=== PATIENT | female | born 1950 | race Caucasian/White ===

== ENCOUNTER 2020-01-25 13:08 | Outpatient (REF) | payer MEDICARE, MEDICAID, SELFPAY ==
[2020-01-25 14:28] LABS: MANUAL DIFF FLAG NO
[2020-01-25 14:35] LABS: Basophils Absolute Auto 0.1 X10*3/uL (0.0-0.2); Basophils Percent Auto 0.9 % (0-2); Eosinophils Absolute Auto 0.4 X10*3/uL (0.0-0.4); Eosinophils Percent Auto 6.1 % (0-4); Hematocrit 42.2 % (37-47); Hemoglobin 13.3 g/dl (12.0-16.0); Imm Gran Abs Auto 0.02 X10*3/uL (0.00-0.03); Imm Gran Pct Auto 0.3 % (0.0-0.4); Lymphocytes Absolute Auto 1.8 X10*3/uL (1.2-4.9); Lymphocytes Percent Auto 28.1 % (20-40); Mean Corpuscular HGB Conc 31.5 g/dl (31.0-35.0); Mean Corpuscular Hemoglobin 27.7 pg (27.0-33.0); Mean Corpuscular Volume 87.9 fL (80-98); Mean Platelet Volume 12.4 fL (9.4-12.3); Monocytes Absolute Auto 0.6 X10*3/uL (0.1-1.2); Monocytes Percent Auto 8.8 % (2-11); Neutrophils Absolute Auto 3.6 X10*3/uL (2.0-8.3); Neutrophils Percent Auto 55.8 % (45-73); Platelet Count 170 X10*3/uL (160-400); Red Cell Distribution Width 14.2 % (11.0-16.0); White Blood Count 6.5 X10*3/uL (4.8-10.8)
[2020-01-25 14:57] LABS: Iron 80 mcg/dL (30-160); Percent Iron Saturation 22 % (15-50); Total Iron Binding Capacity 371 mcg/dL (228-428); Unsaturated Iron Binding 291 ug/dL
[2020-01-25 15:19] LABS: Ferritin 43 ng/mL (10-250); Vitamin D 25-OH Total 47.2 ng/mL (>30)
[2020-01-28 00:26] LABS: Zinc 82 mcg/dL (60-130)
== END 2020-01-25 13:09 | disposition home or self-care (01) ==
LOC: HO.LAB 13:08
PROVIDERS: PCP Family Medicine; Visit Provider Physician Assistant Medical
DX: L65.0 Telogen effluvium (principal); L64.8 Other androgenic alopecia; L82.1 Other seborrheic keratosis
CPT/HCPCS: 36415; 82306; 82728; 83540; 84630; 85025

== ENCOUNTER 2020-07-18 11:00 | Outpatient (REF) | payer MEDICARE, MEDICAID, SELFPAY ==
[2020-07-18 12:10] LABS: Basophils Absolute Auto 0.1 X10*3/uL (0.0-0.2); Basophils Percent Auto 1.3 % (0-2); Eosinophils Absolute Auto 0.5 X10*3/uL (0.0-0.4); Eosinophils Percent Auto 8.5 % (0-4); Hematocrit 41.9 % (37-47); Hemoglobin 13.2 g/dl (12.0-16.0); Imm Gran Abs Auto 0.03 X10*3/uL (0.00-0.03); Imm Gran Pct Auto 0.5 % (0.0-0.4); Lymphocytes Absolute Auto 1.4 X10*3/uL (1.2-4.9); MANUAL DIFF FLAG NO; Mean Corpuscular HGB Conc 31.5 g/dl (31.0-35.0); Mean Corpuscular Hemoglobin 27.8 pg (27.0-33.0); Mean Corpuscular Volume 88.2 fL (80-98); Monocytes Absolute Auto 0.6 X10*3/uL (0.1-1.2); Monocytes Percent Auto 9.4 % (2-11); Neutrophils Absolute Auto 3.5 X10*3/uL (2.0-8.3); Neutrophils Percent Auto 57.3 % (45-73); Platelet Count 156 X10*3/uL (160-400); Red Blood Count 4.75 X10*6/uL (4.20-5.50); Red Cell Distribution Width 14.5 % (11.0-16.0); White Blood Count 6.1 X10*3/uL (4.8-10.8)
[2020-07-18 12:23] LABS: Estimated Average Glucose 151 mg/dL; Hemoglobin A1c % 6.9 %
[2020-07-18 12:55] LABS: Creatinine Urine 152.51 mg/dL; Microalbum/Creatinine Ratio Ur 26.2 ug/mg cr
[2020-07-18 13:13] LABS: Alanine Aminotransferase 37 U/L (0-31); Albumin Level 4.4 g/dL (3.5-5.0); Alkaline Phosphatase 50 U/L (39-117); Anion Gap 15 (12-20); Aspartate Amino Transferase 32 U/L (5-31); Bilirubin Direct 0.3 mg/dL (0.0-0.5); Bilirubin Total 0.9 mg/dL (0.0-1.0); Blood Urea Nitrogen 15 mg/dL (9-16); Calcium 9.7 mg/dL (8.4-10.2); Carbon Dioxide 28 mmol/L (22-29); Chloride 103 mmol/L (96-108); Cholesterol 149 mg/dL; Estimated Glomerular Filt Rate > 60; Glucose Random 176 mg/dL (60-115); HDL Cholesterol 49 mg/dL; LDL Cholesterol Calculated 66 mg/dl; Potassium 4.1 mmol/L (3.3-5.1); Sodium 142 mmol/L (135-145); Total Protein 7.3 g/dL (6.5-8.0); Triglycerides 171 mg/dL
[2020-07-18 13:34] LABS: Ferritin 71 ng/mL (10-250)
[2020-07-18 13:35] LABS: Vitamin D 25-OH Total 36.9 ng/mL (>30)
== END 2020-07-18 11:01 | disposition home or self-care (01) ==
LOC: HO.LAB 11:00
PROVIDERS: Absent Provider Internal Medicine; PCP Internal Medicine; Visit Provider Dermatology
DX: L64.8 Other androgenic alopecia (principal); L65.0 Telogen effluvium
CPT/HCPCS: 36415; 80048; 80061; 80076; 82043; 82306; 82728; 83036; 85025

== ENCOUNTER → 2020-08-16 13:19 | Outpatient (BNVA) | payer MEDICARE, MEDICAID, SELFPAY | PROVIDERS: PCP Internal Medicine; Referring Provider Internal Medicine; Visit Provider Internal Medicine Cardiovascular Disease | DX: I25.10 Atherosclerotic heart disease of native coronary artery without angina pectoris (principal); R00.2 Palpitations | CPT/HCPCS: 93005; 99212 ==

== ENCOUNTER → 2020-08-26 10:06 | Outpatient (REF) | payer MEDICARE, MEDICAID, SELFPAY ==
--- NOTE | 2020-08-26 15:20 | ECG_ITS ---
Hook-up date: 2020-08-26 10:35:00 Duration: 47:59:00 Test Indications: palpitations Medications: [id number] QRS complexes 45 Ventricular ectopics which represent <1 % of total QRS comp. 48 Supraventricular ectopics which represent <1 % of total QRS comp. * Paced QRS complexs which represent % of total QRS comp. VENTRICULAR ECTOPY 36 Isolated 0 Bigeminal Cycles 1 Couplets 1 Runs 7 Beats in Runs 7 Beats LONGEST at 79 BPM at 20:43:15 2020-08-26 7 Beats FASTEST at 79 BPM at 20:43:15 2020-08-26 SUPRAVENTRICULAR ECTOPY 9 Isolated 0 Couplets 7 Runs 39 Beats in Runs 13 Beats LONGEST at 100 BPM at 02:14:40 2020-08-27 4 Beats FASTEST at 119 BPM at 14:50:40 2020-08-26 HEART RATES 50 MIN at 05:11:59 2020-08-27 64 AVG 82 MAX at 15:55:45 2020-08-26 LONGEST RR 1.2080 secs at 05:11:59 2020-08-27 S-T LEVELS Channel 1 - 128 mm at 10:35:00 2020-08-26 - 128 mm at 10:35:00 2020-08-26 Channel 2 - 128 mm at 10:35:00 2020-08-26 - 128 mm at 10:35:00 2020-08-26 Channel 3 - 128 mm at 02:95:41 -- - 128 mm at 02:95:41 Basic rhythm Normal sinus rhythm Frequent Sinus bradycardia , 33% of time HR < 60 bpm No long pause or profound bradycardia One 7 beat run of AIVR at 79 bpm Rare ectopics Patient did not report any symptoms in the diary Referred By: Michael Hazel Overread By: MICHAEL HAZEL MD
== END ==
LOC: HO.CARD 10:06
PROVIDERS: PCP Internal Medicine; Referring Provider Internal Medicine; Visit Provider Internal Medicine Cardiovascular Disease
DX: R00.2 Palpitations (principal)
CPT/HCPCS: 93226

== ENCOUNTER → 2020-10-13 10:04 | Outpatient (REF) | payer MEDICARE, MEDICAID, SELFPAY ==
--- NOTE | 2020-10-13 10:07 | CA_ITS ---
Transthoracic Echocardiogram Patient (Last, First, Middle): Shahida Maya, Gender: Female Date of : 1950 Age: 70 Procedure Date: 10/13/2020 Procedure Type: Transthoracic Echocardiogram Location: OP Height: 165.1 cm Weight: 69.85 kg BSA: 1.77 m2 Heart Rate: bpm BP: 140 / 60 mmHg Computer Technology Instructor: WEI Referring MD: Michael Hazel MD Supervisor Instant Potato Processing: Michael Hazel MD Symptoms: R00.2 - Palpitations Study Quality: Good ECG Rhythm: Sinus Conclusions: - 1. Normal LV systolic function with grade 1 diastolic dysfunction 2. Normal cardiac valvular Doppler is 3. Normal RV systolic pressure 4. No pericardial effusion Findings Left Ventricle Normal left ventricular size, thickness, and systolic function. The visually estimated ejection fraction is between 65-70%. Spectral Doppler is indicative of an impaired relaxation filling pattern. E/E prime ratio is <8, consistent with normal filling pressures. Evidence suggests grade I (mild) diastolic dysfunction. Right Ventricle Normal right ventricular cavity size and systolic function. Atria The left atrium is normal in size. There is no evidence of interatrial shunt. The right atrium is normal in size. Aortic Valve Normal aortic valve structure and function. There is no aortic valve stenosis. There is no aortic valve regurgitation. Mitral Valve Normal mitral valve structure and function. There is trace mitral valve regurgitation. There is no mitral valve stenosis. Pulmonic Valve The pulmonic valve is likely normal. There is trace pulmonic valve regurgitation. Tricuspid Valve There is no evidence of pulmonary hypertension. Great Vessels All visible segments of the aorta are normal in size. The pulmonary artery was not well visualized. Venous The inferior vena cava is normal in size and collapses greater than 50% with inspiration. Pericardium/Pleural There is no evidence of pericardial effusion. Prior Study Comparison No significant change compared to prior study dated: 11/20/2017. Measurements 2D Linear Measurements IVSd: 1.15 0.6-0.9/0.6-1.0 cm LVIDd: 3.69 3.9-5.3/4.2-5.9 cm LVIDd Index: 2.08 2.4-3.2/2.2-3.1 cm/m2 LVIDs: 2.06 2.0-3.6 cm LVPWd: 1.05 0.7-1.1 cm Ao Root: 2.70 2.1-3.5 cm LA Diam: 4.00 2.7-3.8/3.0-4.0 cm LAIDs Index: 2.26 1.5-2.3 cm/m2 LV Mass: 160.26 67-162/88-224 g LV Mass Index: 90.54 43-95/49-115 g/m2 LVOT Diam: 2.00 3.0+(-)1.3 cm 2D Systolic Function EF 4C: 67.40 >55% EF 2C: 65.80 >55% EF BiP: 68.30 >55% Mitral Valve MV Pk E: 0.64 MV PK A: 0.61 MV Decel Time: 146.00 E/A: 1.10 E'Lateral: 11.10 E'Medial: 5.87 E/E' Med: 11.00 E/E' Lat: 5.80 PHT: 43.00 MVA PHT: 5.12 Decel [place]: 4.41 Aortic Valve AoV Pk Mal[place]: 1.40 AoV Pk Grad: 8.00 LVOT LVOT Pk Malick: 1.33 LVOT Mn Malick: 0.86 LVOT VTI: 0.33 LVOT Pk Grad: 7.00 LVOT Mn Grad: 3.00 LVOT Diam: 2.00 LVOT Area: 3.14 Diastolic Function MV Pk E: 0.64 MV Pk A: 0.61 E/A: 1.10 E'Medial: 5.87 E/E' Med: 11.00 E' Laterial: 11.10 E/E' Lat: 5.80 Right Ventricle TAPSE (mm): 1.91 Tricuspid Valve TR Pk Malick: 2.47 TR Pk Grad: 24.00 RA Press: 3.00 RVSP: 27.00 Great Vessels Aorta Ao Root-2D: 2.70 2.0-3.7 cm Ao Asc: 3.00 2.1-3.4 cm Updated in Other Vendor System with Status of Final Michael Hazel MD electronically signed on 10/14/2020 2:58:12 PM with status of Final
== END ==
LOC: HO.CARD 10:04
PROVIDERS: Visit Provider Internal Medicine Cardiovascular Disease
DX: R00.2 Palpitations (principal)
CPT/HCPCS: 93306

== ENCOUNTER → 2020-10-17 09:58 | Outpatient (BNVA) | payer MEDICARE, MEDICAID, SELFPAY | PROVIDERS: PCP Internal Medicine; Referring Provider Internal Medicine; Visit Provider Internal Medicine Cardiovascular Disease | DX: R00.2 Palpitations (principal); Z79.899 Other long term (current) drug therapy | CPT/HCPCS: 99212 ==

== ENCOUNTER 2020-12-15 13:20 | Outpatient (REF) | payer MEDICARE, MEDICAID, SELFPAY ==
--- NOTE | ~2020-12-15 | MM_ITS ---
EXAMINATION: MM SCREENING DIGITAL BREAST TOMOSYNTHESIS, BILATERAL CLINICAL INFORMATION: Screening. Asymptomatic. The lifetime risk of breast cancer based on the Tyrer-Cuzick Model is 4%. COMPARISON: Mammography: 07/01/2018 and studies dating back to 07/07/2013 TECHNIQUE: Digital breast tomosynthesis is performed in both the craniocaudal and mediolateral oblique views along with computer-aided detection (CAD). Synthesized 2D images are generated from the tomosynthesis. Left breast exaggerated craniocaudal view performed. FINDINGS: The breasts are heterogeneously dense, which may obscure small masses (ACR BI-RADS breast composition Category c). There is stable appearance of the right breast. About the deep upper outer aspect of the left breast there is development of some curvilinear calcifications which may be vascular in nature. Spot magnification views are recommended for further evaluation. MM/MM tomosynthesis screening BI IMPRESSION: New curvilinear calcifications about the upper outer aspect of the left breast for which spot magnification views are recommended in craniocaudal and 90 degrees mediolateral views. ASSESSMENT: BI-RADS 0: Incomplete - Need Additional Imaging Evaluation RECOMMENDATION: 1. Additional views of the left breast. 2. Targeted ultrasound if warranted after review of the additional views. 3. Radiology department staff will contact the patient for additional imaging. This patient's information was entered into a reminder system with a target due date for their next mammogram.
== END 2020-12-15 13:21 | disposition home or self-care (01) ==
LOC: HO.MAMMO 13:20
PROVIDERS: Visit Provider Internal Medicine
DX: Z12.31 Encounter for screening mammogram for malignant neoplasm of breast (principal)
CPT/HCPCS: 77063; 77067

== ENCOUNTER 2020-12-21 14:36 | Outpatient (REF) | payer MEDICARE, MEDICAID, SELFPAY ==
--- NOTE | ~2020-12-21 | MM_ITS ---
EXAMINATION: MM DIAGNOSTIC DIGITAL MAMMOGRAPHY, LEFT CLINICAL INFORMATION: Recall from screening for new curvilinear calcifications posterior upper outer left breast, possibly vascular. COMPARISON: Mammography: 12/15/2020, 07/01/2018, 06/14/2017 TECHNIQUE: Digital mammography is performed in the following views: Magnification CC, magnification ML FINDINGS: The breasts are heterogeneously dense, which may obscure small masses (ACR BI-RADS breast composition Category c). Breast tissue composition borders on average fibroglandular. The new curvilinear calcifications noted on recent screening mammography are vascular in etiology with typical uniform tram-track pattern. There are other scattered fine round calcifications throughout the upper outer left breast similar to prior exams. No interval pleomorphic types. Results are discussed with the patient at time of visit using an director of parks and recreation. MM/MM added views LT IMPRESSION: Additional views confirm no benign vascular calcifications posterior upper outer left breast. ASSESSMENT: BI-RADS 2: Benign RECOMMENDATION: Routine annual mammography screening. This patient's information was entered into a reminder system with a target due date for their next mammogram.
== END 2020-12-21 14:37 | disposition home or self-care (01) ==
LOC: HO.MAMMO 14:36
PROVIDERS: Visit Provider Internal Medicine
DX: R92.1 Mammographic calcification found on diagnostic imaging of breast (principal)
CPT/HCPCS: 77065

== ENCOUNTER → 2020-12-26 10:18 | Outpatient (BNVA) | payer MEDICARE, MEDICAID, SELFPAY | PROVIDERS: PCP Internal Medicine; Visit Provider Internal Medicine Gastroenterology | DX: K75.81 Nonalcoholic steatohepatitis (NASH) (principal) | CPT/HCPCS: 99212 ==

== ENCOUNTER 2021-02-22 09:36 | Outpatient (REF) | payer MEDICARE, MEDICAID, SELFPAY ==
--- NOTE | ~2021-02-22 | US_ITS ---
EXAMINATION: US ABDOMEN LIMITED CLINICAL INFORMATION: Nonalcoholic steatohepatitis. COMPARISON: Ultrasound abdomen complete 12/09/2019 and 09/03/2018. KUB 11/17/2014 and 11/07/2014. CT abdomen and pelvis 11/05/2014. TECHNIQUE: Real-time imaging of the right upper quadrant abdominal viscera. FINDINGS: PANCREAS: Normal. LIVER: Liver echotexture is increased. The liver is normal in size. The liver contour is normal. No focal hepatic lesion. There is no intrahepatic biliary duct dilatation seen. GALLBLADDER: Normal. The gallbladder is physiologically distended without evidence of stones, sludge, polyps, wall thickening or pericholecystic fluid. COMMON BILE DUCT: Normal in caliber measuring 0.3 cm in diameter. RIGHT KIDNEY: There are 2 cysts measuring 2.9 x 1.9 x 2.6 cm and 1 cm in the midpole. No hydronephrosis or renal calculi. The kidney measures 12.7 cm in maximum dimension. FREE FLUID: None. US/US abdomen limited IMPRESSION: Echogenic liver probably representing fatty infiltration. Right renal cysts.
== END 2021-02-22 09:37 | disposition home or self-care (01) ==
LOC: HO.US 09:36
PROVIDERS: PCP Internal Medicine; Visit Provider Internal Medicine Gastroenterology
DX: K75.81 Nonalcoholic steatohepatitis (NASH) (principal)
CPT/HCPCS: 76705

== ENCOUNTER 2021-04-04 09:12 | Outpatient (REF) | payer MEDICARE, MEDICAID, SELFPAY ==
[2021-04-04 10:07] LABS: Estimated Average Glucose 157 mg/dL; Hemoglobin A1c % 7.1 %
[2021-04-04 10:20] LABS: Anion Gap 14 (12-20); Blood Urea Nitrogen 18 mg/dL (9-16); Carbon Dioxide 30 mmol/L (22-29); Chloride 103 mmol/L (96-108); Estimated Glomerular Filt Rate > 60; Glucose Random 136 mg/dL (60-115); Potassium 3.7 mmol/L (3.3-5.1); Sodium 143 mmol/L (135-145)
== END 2021-04-04 09:13 | disposition home or self-care (01) ==
LOC: HO.LAB 09:12
PROVIDERS: PCP Internal Medicine; Visit Provider Internal Medicine
DX: Z00.00 Encounter for general adult medical examination without abnormal findings (principal)
CPT/HCPCS: 36415; 80048; 83036

== ENCOUNTER 2021-07-06 10:01 | Outpatient (REF) | payer MEDICARE, MEDICAID, SELFPAY ==
[2021-07-06 11:06] LABS: MANUAL DIFF FLAG NO
[2021-07-06 11:31] LABS: Prothrombin Time 11.9 SEC (9.9-13.0)
[2021-07-06 11:33] LABS: Basophils Absolute Auto 0.1 X10*3/uL (0.0-0.2); Basophils Percent Auto 1.1 % (0-2); Eosinophils Absolute Auto 0.4 X10*3/uL (0.0-0.4); Eosinophils Percent Auto 6.7 % (0-4); Hematocrit 41.8 % (37.0-47.0); Hemoglobin 13.2 g/dl (12.0-16.0); Imm Gran Abs Auto 0.01 X10*3/uL (0.00-0.03); Imm Gran Pct Auto 0.2 % (0.0-0.4); Lymphocytes Percent Auto 19.4 % (20-40); Mean Corpuscular HGB Conc 31.6 g/dl (31.0-35.0); Mean Corpuscular Hemoglobin 26.9 pg (27.0-33.0); Mean Corpuscular Volume 85.3 fL (80.0-98.0); Mean Platelet Volume 11.6 fL (9.4-12.3); Monocytes Absolute Auto 0.5 X10*3/uL (0.1-1.2); Monocytes Percent Auto 8.9 % (2-11); Neutrophils Absolute Auto 3.4 x10*3/uL (2.0-8.3); Neutrophils Percent Auto 63.7 % (45-73); Platelet Count 166 X10*3/uL (160-400); Red Cell Distribution Width 14.2 % (11.0-16.0); White Blood Count 5.3 X10*3/uL (4.8-10.8)
[2021-07-06 11:51] LABS: Alanine Aminotransferase 30 U/L (0-31); Albumin Level 4.2 g/dL (3.5-5.0); Alkaline Phosphatase 54 U/L (39-117); Anion Gap 15 (12-20); Aspartate Amino Transferase 27 U/L (5-31); Bilirubin Total 0.8 mg/dL (0.0-1.0); Blood Urea Nitrogen 15 mg/dL (9-16); Calcium 9.5 mg/dL (8.4-10.2); Carbon Dioxide 30 mmol/L (22-29); Chloride 99 mmol/L (96-108); Estimated Glomerular Filt Rate > 60; Glucose Random 250 mg/dL (60-115); Potassium 3.6 mmol/L (3.3-5.1); Sodium 140 mmol/L (135-145); Total Protein 7.4 g/dL (6.5-8.0)
[2021-07-06 12:11] LABS: Ferritin 55 ng/mL (10-250); TSH reflex Free T4 1.36 uIU/mL (0.32-4.0); Vitamin D 25-OH Total 47.4 ng/mL (>30)
[2021-07-06 12:22] LABS: Folate > 20.0 ng/mL (> or = 4.0); Vitamin B12 451 pg/mL (200-900)
== END 2021-07-06 10:02 | disposition home or self-care (01) ==
LOC: HO.LAB 10:01
PROVIDERS: Absent Provider Physician Assistant Medical; PCP Internal Medicine; Referring Provider Internal Medicine; Visit Provider Internal Medicine Gastroenterology
DX: L65.0 Telogen effluvium (principal); L64.8 Other androgenic alopecia; K75.81 Nonalcoholic steatohepatitis (NASH); E73.9 Lactose intolerance, unspecified
CPT/HCPCS: 36415; 80053; 82306; 82607; 82728; 82746; 84443; 85025; 85610; 99212

== ENCOUNTER → 2021-10-16 10:25 | Outpatient (BNVA) | payer MEDICARE, MEDICAID, SELFPAY | PROVIDERS: PCP Internal Medicine; Referring Provider Internal Medicine; Visit Provider Internal Medicine Cardiovascular Disease | DX: I47.1 Supraventricular tachycardia (principal); I25.10 Atherosclerotic heart disease of native coronary artery without angina pectoris | CPT/HCPCS: 93005; 99212 ==

== ENCOUNTER → 2021-10-24 11:09 | Outpatient (REF) | payer MEDICARE, MEDICAID, SELFPAY ==
--- NOTE | 2021-10-24 11:18 | HM_ITS ---
* Total monitoring time 2 days and 23 hours. * Underlying rhythm is sinus. Average rate 61/Min. Range 49 to 89/Min. * No atrial fibrillation or flutter or AV blocks or pauses. * Rare supraventricular ectopy with minimal burden. * Rare ventricular ectopy with minimal burden. One run of 3 beats, but this could also be supraventricular. * No patient events. MTDD
== END ==
LOC: HO.CARD 11:09
PROVIDERS: PCP Internal Medicine; Visit Provider Internal Medicine Cardiovascular Disease
DX: I47.1 Supraventricular tachycardia (principal)
CPT/HCPCS: 93242

== ENCOUNTER 2021-12-18 09:53 | Outpatient (REF) | payer MEDICARE, MEDICAID, SELFPAY ==
--- NOTE | ~2021-12-18 | MM_ITS ---
EXAMINATION: MM SCREENING DIGITAL BREAST TOMOSYNTHESIS, BILATERAL CLINICAL INFORMATION: Screening. Asymptomatic. The lifetime risk of breast cancer based on the Tyrer-Cuzick Model is 5%. COMPARISON: Mammography: 12/21/2020, 12/15/2020, 07/01/2018, 06/14/2017 TECHNIQUE: Digital breast tomosynthesis is performed in both the craniocaudal and mediolateral oblique views along with computer-aided detection (CAD). Synthesized 2D images are generated from the tomosynthesis. FINDINGS: The breasts are heterogeneously dense, which may obscure small masses (ACR BI-RADS breast composition Category c). Parenchymal pattern is similar to prior studies. No developing density or interval mass or architectural abnormality. There is a dermal lesion overlying the posterior medial left breast. Again, scattered bilateral punctate and coarse round and vascular calcifications are again noted. The axilla are unremarkable. No significant changes. MM/MM tomosynthesis screening BI IMPRESSION: No mammographic evidence of malignancy. ASSESSMENT: BI-RADS 2: Benign RECOMMENDATION: Routine annual mammography screening. This patient's information was entered into a reminder system with a target due date for their next mammogram.
== END 2021-12-18 09:54 | disposition home or self-care (01) ==
LOC: HO.MAMMO 09:53
PROVIDERS: PCP Internal Medicine; Visit Provider Internal Medicine
DX: Z12.31 Encounter for screening mammogram for malignant neoplasm of breast (principal)
CPT/HCPCS: 77063; 77067

== ENCOUNTER → 2022-01-04 09:34 | Outpatient (BNVA) | payer MEDICARE, MEDICAID, SELFPAY | PROVIDERS: PCP Internal Medicine; Visit Provider Internal Medicine Gastroenterology | DX: Z23 Encounter for immunization (principal); K75.81 Nonalcoholic steatohepatitis (NASH) | CPT/HCPCS: 90471; 90746; 99212 ==

== ENCOUNTER 2022-01-23 09:37 | Outpatient (REF) | payer MEDICARE, MEDICAID, SELFPAY ==
[2022-01-23 10:46] LABS: Estimated Average Glucose 166 mg/dL; Hemoglobin A1c % 7.4 %
[2022-01-23 10:49] LABS: Alanine Aminotransferase 44 U/L (0-31); Albumin Level 4.3 g/dL (3.5-5.0); Alkaline Phosphatase 48 U/L (39-117); Anion Gap 21 (12-20); Aspartate Amino Transferase 52 U/L (5-31); Bilirubin Direct 0.4 mg/dL (0.0-0.5); Bilirubin Total 0.6 mg/dL (0.0-1.0); Blood Urea Nitrogen 14 mg/dL (9-16); Calcium 9.6 mg/dL (8.4-10.2); Carbon Dioxide 26 mmol/L (22-29); Chloride 101 mmol/L (96-108); Cholesterol 118 mg/dL; Estimated Glomerular Filt Rate > 60; Glucose Random 174 mg/dL (60-115); HDL Cholesterol 49 mg/dL; LDL Cholesterol Calculated 38 mg/dl; Potassium 3.6 mmol/L (3.3-5.1); Sodium 144 mmol/L (135-145); Total Protein 7.2 g/dL (6.5-8.0); Triglycerides 157 mg/dL
[2022-01-23 11:06] LABS: Creatinine Urine 136.86 mg/dL; Microalbum/Creatinine Ratio Ur 28.4 ug/mg cr
== END 2022-01-23 09:38 | disposition home or self-care (01) ==
LOC: HO.LAB 09:37
PROVIDERS: PCP Internal Medicine; Visit Provider Internal Medicine
DX: E11.9 Type 2 diabetes mellitus without complications (principal)
CPT/HCPCS: 36415; 80048; 80061; 80076; 82043; 83036

== ENCOUNTER → 2022-01-30 09:55 | Outpatient (BNVA) | payer MEDICARE, MEDICAID, SELFPAY | PROVIDERS: PCP Internal Medicine; Visit Provider Internal Medicine Gastroenterology | DX: Z23 Encounter for immunization (principal); K75.81 Nonalcoholic steatohepatitis (NASH) | CPT/HCPCS: 90471; 90746 ==

== ENCOUNTER 2022-02-16 08:58 | Outpatient (REF) | payer MEDICARE, MEDICAID, SELFPAY ==
--- NOTE | ~2022-02-16 | US_ITS ---
EXAMINATION: US ABDOMEN LIMITED CLINICAL INFORMATION: Nonalcoholic steatohepatitis. COMPARISON: Ultrasound abdomen limited 02/22/2021. Ultrasound abdomen complete 12/09/2019. X-ray abdomen KUB 11/17/2014 and 11/07/2014. CT abdomen and pelvis 11/05/2014. TECHNIQUE: Real-time imaging of the right upper quadrant abdominal viscera. FINDINGS: PANCREAS: Normal. LIVER: Liver echotexture is increased. The liver is enlarged. The liver contour is normal. No focal hepatic lesion. There is no intrahepatic biliary duct dilatation seen. GALLBLADDER: Normal. The gallbladder is physiologically distended without evidence of stones, sludge, polyps, wall thickening or pericholecystic fluid. COMMON BILE DUCT: Normal in caliber measuring 0.3 cm in diameter. RIGHT KIDNEY: There are 2 cysts measuring 2.3 x 2.4 x 1.5 cm and 2 x 1.7 x 1.6 cm in the midpole. No hydronephrosis or renal calculi. The kidney measures 13.1 cm in maximum dimension. FREE FLUID: None. US/US abdomen limited IMPRESSION: Enlarged echogenic liver probably representing fatty infiltration. Right renal cysts.
== END 2022-02-16 08:59 | disposition home or self-care (01) ==
LOC: HO.US 08:58
PROVIDERS: PCP Internal Medicine; Visit Provider Internal Medicine Gastroenterology
DX: K75.81 Nonalcoholic steatohepatitis (NASH) (principal)
CPT/HCPCS: 76705

== ENCOUNTER → 2022-07-03 09:40 | Outpatient (BNVA) | payer MEDICARE, MEDICAID, SELFPAY | PROVIDERS: PCP Internal Medicine; Visit Provider Internal Medicine Gastroenterology | DX: Z23 Encounter for immunization (principal) | CPT/HCPCS: 90471; 90746; 99211 ==

== ENCOUNTER 2022-08-17 09:44 | Outpatient (REF) | payer MEDICARE, MEDICAID, SELFPAY ==
[2022-08-17 11:16] LABS: Appearance Urine Clear; Color Urine Dark Yellow; Glucose Urine UA Negative (Negative); Leukocyte Esterase Urine Moderate (2+) (Negative); Nitrite Urine Negative (Negative); PH 5.5 (5.0-9.0); Specific Gravity - Urine 1.025 (1.005-1.025); UMIC TRIGGER UACC YES; Urine Blood Negative (Negative); Urine Ketones Trace mg/dL (Negative); Urine Protein 30 (1+) mg/dL (Neg-Trace)
[2022-08-17 11:23] LABS: Bacteria Urine Trace (None Seen); Hyaline Casts Urine 0-2 /LPF (0-2); UACC Culture Trigger YES
== END 2022-08-17 09:45 | disposition home or self-care (01) ==
LOC: HO.LAB 09:44
PROVIDERS: PCP Internal Medicine; Visit Provider Internal Medicine
DX: R35.0 Frequency of micturition (principal)
CPT/HCPCS: 81001; 81003; 87086

== ENCOUNTER 2022-10-05 10:43 | Outpatient (REF) | payer MEDICARE, MEDICAID, SELFPAY ==
--- NOTE | ~2022-10-05 | US_ITS ---
EXAMINATION: US PELVIS CLINICAL INFORMATION: Pelvic pain Postmenopausal COMPARISON: Pelvic ultrasound 01/08/2019 TECHNIQUE: Ultrasound of the pelvis is performed using both transabdominal and transvaginal transducers along with Doppler. Transvaginal imaging is performed due to inadequate visualization transabdominally. FINDINGS: Uterus: The uterus is anteverted and measures 7.5 x 3.1 x 2.9 cm. No focal fibroid The endometrium measures 0.4 cm. Calcification and fluid are seen within the endometrial cavity. This could be due to previous surgery or instrumentation or possibly due to endometrial atrophy. Right ovary measures 1.5 x 1.0 x 1.1 cm for a volume of 0.9 mL. The left ovary is not seen. The left adnexa is obscured by bowel gas. US/US pelvic and transvaginal IMPRESSION: 1. Normal size uterus. 2. Calcification and fluid are seen within the endometrial cavity. This could be due to previous surgery or instrumentation or possibly due to endometrial atrophy. 3. Normal right ovary. 4. The left ovary is not seen. The left adnexa is obscured by bowel gas.
== END 2022-10-05 10:44 | disposition home or self-care (01) ==
LOC: HO.US 10:43
PROVIDERS: PCP Internal Medicine; Visit Provider Internal Medicine
DX: R10.2 Pelvic and perineal pain (principal)
CPT/HCPCS: 76830; 76856

== ENCOUNTER 2022-11-28 12:16 | Outpatient (AMB) | payer MEDICARE, MEDICAID, SELFPAY ==
[2022-11-28 12:48] VITALS: BP 166/64; BMI 24.6
--- NOTE | 2022-11-28 12:48 | A.OFFVIS_ITS ---
Intake Vital Signs 11/28/22 12:48 Height 5 ft 5 in Weight 148 lb BMI 24.6 BP 166/64 H Intake Visit Reasons: pelvic pain/30 min Absorption Plant Operator Helper Required: Yes Absorption Plant Operator Helper Language: Ferry Engineer Name: Carlie Treadwell Information Interpreted: non-clinical & clinical Prepleater: Prepleater Present (Carlie) Allergies lisinopril Allergy (Unknown, Verified 11/28/22 12:49) palpitations losartan Allergy (Unknown, Verified 11/28/22 12:49) palpitations canagliflozin [Invokana] Adverse Reaction (Unknown, Verified 11/28/22 12:49) palpitations Is last menstrual period known: No Post menopausal: Yes HPI HPI Comments History of Present Illness Details The patient is presenting referred from her PCP regarding right-sided pelvic pain with no associated GI or symptoms , no vaginal bleeding. Pelvic ultrasound showed the following: Uterus: The uterus is anteverted and measures 7.5 x 3.1 x 2.9 cm.? No focal fibroid The endometrium measures 0.4 cm. Calcification and fluid are seen within the endometrial cavity. This could be due to previous surgery or instrumentation or possibly due to endometrial atrophy. Right ovary measures 1.5 x 1.0 x 1.1 cm for a volume of 0.9 mL. The left ovary is not seen. The left adnexa is obscured by bowel gas. In addition, the patient is complaining of bilateral vulvar itching of few weeks duration [facility] Medical History CAD (coronary artery disease) Diabetes mellitus HTN (hypertension) Paroxysmal atrial tachycardia Surgical History History of bladder surgery Family History Father No problems noted. Mother No problems noted. Social History Patient Tobacco Use Status: Never used Tobacco Female Reproductive History Menstrual control method: none Date of last pap smear: 06/17/17 (negative) Date of Mammogram: 12/18/21 Review of Systems Const All systems reviewed & are unremarkable except as noted in HPI and below Physical Exam Vital Signs: Last Vital Signs BP 166/64 H 11/28/22 12:48 BMI result Body Mass Index 24.6 General: Yes no CVA tenderness External Female Exam: normal appearance of the urethra and other (Bilateral vulvar leukoplakias) Speculum Exam - Vagina: normal appearance of the vagina, normal palpation, no lesions and no masses Speculum Exam - Cervix: normal appearance of the cervix, normal palpation, no lesions, no masses and nontender Bimanual exam- vagina & uterus: normal bimanual exam, normal palpation, uterine size normal, normal palpation, uterine shape normal, No Cervical tenderness present and non-tender Bimanual Exam- Adnexa, other: normal adnexae Back/Spine/Pelvis Back: no CVA tenderness Results AMB Urinalysis, Automated UA Leukoctes 0 Soo/uL Last Edit by Loretta England [facility] on 11/28/22 13:12 UA Nitrite Negative Last Edit by Loretta England [facility] on 11/28/22 13:12 UA Urobilinogen 0 mg/dL Last Edit by Loretta England [facility] on 11/28/22 13:12 UA Protein 1 mg/dL Last Edit by Loretta England [facility] on 11/28/22 13:12 UA pH 5 Last Edit by Loretta England [facility] on 11/28/22 13:12 UA Blood 0 Arturo/uL Last Edit by Loretta England [facility] on 11/28/22 13:12 UA Specific [place] 1.030 Last Edit by Loretta England [facility] on 11/28/22 13: 12 UA Ketone Negative Last Edit by Loretta England [facility] on 11/28/22 13:12 UA Bilirubin 0 mg/dL Last Edit by Loretta England [facility] on 11/28/22 13:12 UA Glucose 0 mg/dL Last Edit by Loretta England [facility] on 11/28/22 13:12 Assessment & Plan Assessment & Plan (1) Pelvic pain: Code(s): R10.2 - Pelvic and perineal pain Plan: Urine dip done in the office was negative. Discussed with the patient the differential diagnosis of pelvic pain and the results of the ultrasound showing normal right ovary and nonspecific atrophy related findings on the endometrial lining. Instructed the patient to call her PCP for further workup . All questions answered, the patient verbalized understanding. 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 Instructions given the patient to schedule vulvar biopsy in 2 weeks. All questions answered, the patient verbalized understanding. Coding Level of Care Code Est Pt Level 3 (61308) Diagnoses Pelvic pain R10.2 Vulvar leukoplakia N90.4
== END 2022-11-28 13:13 | disposition home or self-care (01) ==
PROVIDERS: PCP Internal Medicine; Visit Provider Obstetrics & Gynecology
DX: R10.2 Pelvic and perineal pain (principal); N90.4 Leukoplakia of vulva
CPT/HCPCS: 99213

== ENCOUNTER → 2022-11-28 12:16 | Outpatient (BNVA) | payer MEDICARE, MEDICAID, SELFPAY | PROVIDERS: PCP Internal Medicine; Visit Provider Obstetrics & Gynecology | DX: N90.4 Leukoplakia of vulva (principal); R10.2 Pelvic and perineal pain | CPT/HCPCS: 81003; 99212 ==

== ENCOUNTER 2022-12-13 09:07 | Outpatient (REF) | payer MEDICARE, MEDICAID, SELFPAY ==
[2022-12-13 11:09] LABS: Anion Gap 14 (12-20); Blood Urea Nitrogen 12 mg/dL (9-16); Calcium 9.9 mg/dL (8.4-10.2); Carbon Dioxide 28 mmol/L (22-29); Chloride 104 mmol/L (96-108); Estimated Glomerular Filt Rate > 60; Glucose Random 189 mg/dL (60-115); Potassium 3.5 mmol/L (3.3-5.1); Sodium 142 mmol/L (135-145)
== END 2022-12-13 09:08 | disposition home or self-care (01) ==
LOC: HO.LAB 09:07
PROVIDERS: PCP Internal Medicine; Visit Provider Internal Medicine
DX: E11.9 Type 2 diabetes mellitus without complications (principal); Z79.4 Long term (current) use of insulin
CPT/HCPCS: 36415; 80048

== ENCOUNTER 2022-12-24 08:38 | Outpatient (REF) | payer MEDICARE, MEDICAID, SELFPAY ==
--- NOTE | ~2022-12-24 | MM_ITS ---
EXAMINATION: MM SCREENING DIGITAL BREAST TOMOSYNTHESIS, BILATERAL CLINICAL INFORMATION: Screening. Asymptomatic. COMPARISON: Mammography: 12/18/2021, 12/21/2020, 12/15/2020, 07/01/2018, 06/14/2017 TECHNIQUE: Digital breast tomosynthesis is performed in both the craniocaudal and mediolateral oblique views along with computer-aided detection (CAD). Synthesized 2D images are generated from the tomosynthesis. FINDINGS: The breasts are heterogeneously dense, which may obscure small masses (ACR BI-RADS breast composition Category c). Again, there are scattered parenchymal dystrophic, punctate, and vascular calcifications. There is been no aggressive change. Skin lesions in the lateral left breast. There are no suspicious masses, suspicious grouped calcifications, or areas of architectural distortion in either breast. The parenchymal pattern is stable from prior exams. MM/MM tomosynthesis screening BI IMPRESSION: No mammographic evidence of malignancy. ASSESSMENT: BI-RADS BI-RADS 2 - Benign Findings RECOMMENDATION: Routine annual mammography screening. 1 year F/U This examination should not preclude the clinical evaluation of a suspicious palpable abnormality. This patient's information was entered into a reminder system with a target due date for their next mammogram.
== END 2022-12-24 08:39 | disposition home or self-care (01) ==
LOC: HO.MAMMO 08:38
PROVIDERS: PCP Internal Medicine; Visit Provider Internal Medicine
DX: Z12.31 Encounter for screening mammogram for malignant neoplasm of breast (principal)
CPT/HCPCS: 77063; 77067

== ENCOUNTER → 2022-12-24 09:00 | Outpatient (BNV) | payer MEDICARE, MEDICAID, SELFPAY | PROVIDERS: PCP Internal Medicine; Visit Provider Radiology Diagnostic Radiology | DX: Z12.31 Encounter for screening mammogram for malignant neoplasm of breast (principal) | CPT/HCPCS: 77063; 77067 ==

== ENCOUNTER 2022-12-25 09:31 | Outpatient (AMB) | payer MEDICARE, MEDICAID, SELFPAY ==
--- NOTE | 2022-12-25 09:37 | MHC.OFFVIS ---
Intake Vital Signs 12/25/22 09:38 Height 5 ft 5 in Weight 147 lb 11.355 oz BMI 24.6 BP 120/70 Blood Pressure Location Lt brachial Position Sitting Pulse 58 Intake Visit Reasons: 1 YEAR FUP (R/S 10/09 BY PT) Intake Note: 1 year follow-up with ekg c/o some palpitations Financial Services Representative Required: Yes Financial Services Representative Name: Stephany tobias Allergies lisinopril Allergy (Unknown, Verified 11/28/22 12:49) palpitations losartan Allergy (Unknown, Verified 11/28/22 12:49) palpitations canagliflozin [Invokana] Adverse Reaction (Unknown, Verified 11/28/22 12:49) palpitations Medication List - Last Reconciled 12/25/22 by Michael Hazel MD aspirin (Ecotrin Low Strength) 81 mg PO DAILY bisoprolol fumarate 10 mg PO BID chlorthalidone 25 mg PO DAILY cholecalciferol (vitamin D3) 25 mcg PO DAILY diltiazem HCl 120 mg PO DAILY insulin glargine U-300 conc 50 units subcut BEDTIME metformin 1,000 mg PO BID rosuvastatin 5 mg PO DAILY HPI HPI Comments History of Present Illness Details Shahida comes for follow-up. History was obtained with help of certified court/medical interpreter. Patient denies any prolonged irregular heartbeat or palpitations. She says mostly at nighttime she gets symptoms of skipped heartbeats. This wakes her up from sleep sometimes. This associated shortness of breath. She then cough send the symptoms usually dissipate and she usually well. No change in her overall functional capacity. 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 Her she denies any exertional chest pain or shortness of breath. Her last LDL was well optimized. [facility] Medical History CAD (coronary artery disease) Diabetes mellitus HTN (hypertension) Paroxysmal atrial tachycardia Surgical History History of bladder surgery Family History Father No problems noted. Mother No problems noted. Social History Patient Tobacco Use Status: Never used Tobacco Review of Systems Const Denies chills, Denies fatigue, Denies fever(s), Denies frequent falls, Denies weakness, Denies weight gain and Denies weight loss ENT Denies dizziness Card Denies chest pain, Denies leg edema, Denies lightheadedness, Denies palpitations, Denies dyspnea, Denies dyspnea on exertion, Denies orthopnea and Denies other (loss of consciousness) Resp Denies cough, Denies dyspnea and Denies dyspnea on exertion GI Denies hematochezia and Denies change in stool character Musc Denies abnormal gait, Denies muscle weakness, Denies numbness, Denies radiating pain into limb and Denies tingling Neuro Denies abnormal gait, Denies dizziness, Denies frequent falls, Denies numbness, Denies tingling and Denies weakness Endo Denies fatigue and Denies palpitations Physical Exam Vital Signs: Last Vital Signs Pulse 58 12/25/22 09:38 BP 120/70 12/25/22 09:38 BMI result Body Mass Index 24.6 Const General: cooperative, comfortable, no acute distress, alert, awake and anxious Nutritional Appearance: thin Orientation/consciousness: patient oriented x3 Limitations: no limitations Neck Neck: Yes trachea midline, Yes supple and Yes no JVD Resp Effort & Inspection: normal respiratory effort Auscultation: clear to auscultation bilaterally Cardio Jugular venous distension: no JVD Palpation: normal PMI Rate: regular rate Rhythm: regular rhythm Heart sounds: S1 normal heart sound present and S2 normal heart sound present Neuro General: patient oriented x3 and no focal motor deficits Office Procedures EKG Details: EKG shows sinus bradycardia [address] T wave changes [id number], Complete Assessment & Plan Assessment & Plan (1) Paroxysmal atrial tachycardia: Code(s): I47.1 - Supraventricular tachycardia Plan: Paroxysmal atrial tachycardia which has remained overall suppressed on dual therapy with Cardizem as well as bisoprolol. She has done well with the same. She continues to have symptoms palpitation which are most likely related to extra systoles. Benign nature of these were discussed with her. No change in therapy at this point time. Avoidance of stimulants was discussed. Stress mitigation strategies were discussed. (2) CAD (coronary artery disease): Comment: Nonobstructive 50% moderate stenosis in diagonal as well as RCA by coronary CTA Code(s): I25.10 - Atherosclerotic heart disease of [place] coronary artery without angina pectoris Plan: CAD with no recurrent symptoms with exertion. She has nonobstructive disease from before. Continue low-dose aspirin therapy. Continue aggressive vascular risk factor modification. Blood pressure is currently well optimized. LDL is extremely well optimized. Continue low-dose statin therapy. Encouraged to increase her heart healthy lifestyle with increase activity level and dietary intervention. Will follow up in the clinic in 1 year's time, sooner p.r.n.. Thank you for allowing me to partake in her care Coding Level of Care Code Est Pt Level 4 (77572) Diagnoses Paroxysmal atrial tachycardia I47.1 CAD (coronary artery disease) I25.10 CPT Codes EKG - CPT: 71205-[id number], Complete ([id number])
[2022-12-25 09:38] VITALS: BP 120/70; PULSE 58; BMI 24.6
== END 2022-12-25 10:01 | disposition home or self-care (01) ==
PROVIDERS: PCP Internal Medicine; Visit Provider Internal Medicine Cardiovascular Disease
DX: I47.1 Supraventricular tachycardia (principal); I25.10 Atherosclerotic heart disease of native coronary artery without angina pectoris
CPT/HCPCS: 93010; 99214

== ENCOUNTER → 2022-12-25 09:31 | Outpatient (BNVA) | payer MEDICARE, MEDICAID, SELFPAY | PROVIDERS: PCP Internal Medicine; Visit Provider Internal Medicine Cardiovascular Disease | DX: I47.10 Supraventricular tachycardia, unspecified (principal); I25.10 Atherosclerotic heart disease of native coronary artery without angina pectoris; Z79.82 Long term (current) use of aspirin; Z79.899 Other long term (current) drug therapy | CPT/HCPCS: 93005; 99212 ==

== ENCOUNTER 2023-03-07 13:05 | Outpatient (REF) | payer MEDICARE, MEDICAID, SELFPAY | END 2023-03-07 13:06 | disposition home or self-care (01) | LOC: HO.LNP 13:05 | PROVIDERS: PCP Internal Medicine; Visit Provider Obstetrics & Gynecology | DX: N90.4 Leukoplakia of vulva (principal) | CPT/HCPCS: 56605; 88305 ==

== ENCOUNTER 2023-03-07 13:05 | Outpatient (AMB) | payer MEDICARE, MEDICAID, SELFPAY ==
[2023-03-07 13:09] VITALS: BP 132/60; BMI 24.5
--- NOTE | 2023-03-07 13:09 | MHC.OFFVIS ---
Intake Vital Signs 03/07/23 13:09 Height 5 ft 5 in Weight 147 lb BMI 24.5 BP 132/60 Intake Visit Reasons: Vulvar BX/DO NOT RS Finished Cloth Examiner Required: No Information Interpreted: non-clinical & clinical Strip Deburrer: Strip Deburrer Present (Aidyn) Allergies lisinopril Allergy (Unknown, Verified 03/07/23 13:15) palpitations losartan Allergy (Unknown, Verified 03/07/23 13:15) palpitations canagliflozin [Invokana] Adverse Reaction (Unknown, Verified 03/07/23 13:15) palpitations Is last menstrual period known: No Post menopausal: Yes Patient : No HPI HPI Comments History of Present Illness Details Presenting for vulvar biopsy for leukoplakia PFSH Medical History CAD (coronary artery disease) Diabetes mellitus HTN (hypertension) Paroxysmal atrial tachycardia Surgical History History of bladder surgery Family History Father No problems noted. Mother No problems noted. Social History Patient Tobacco Use Status: Never used Tobacco Female Reproductive History Menstrual control method: none Office Procedures ELECTRIC METER REPAIRER HELPER Biopsy Before the procedure was started d/w patient the procedure, alternatives ( do nothing, medical rx), & all the risks associated with the procedure ( bleeding , infection, vulvar scarring, painful intercourse, injury to vessels, possible need for transfusion with all its risks) then patient signed the consent. Preop dx: Right vulvar leukoplakia Op: Right vulvar leukoplakia biopsy Post op: Same Anesthesia: Lidocaine 1% 3cc used Procedure: Using betadine the area was scrubbed and draped in the usual manner. 3 cc of lidocaine was used for anesthesia at the left vulvar lesion area ; using punch biopsy theRight vulvar leukoplakia was biopsy. Pressure was used for hemostasis. The patient tolerated the procedure well. Discharge Instructions: The patient was instructed to schedule an appointment in 2 weeks for follow-up and to call if temp>100.4, area of the biopsy redness or pain, nausea/vomiting. This note was generated with a voice recognition program. Some errors may have been overlooked during the review of this note. Sometimes these errors may affect the content or meaning of a given sentence. 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
== END 2023-03-07 13:26 | disposition home or self-care (01) ==
PROVIDERS: PCP Internal Medicine; Visit Provider Obstetrics & Gynecology
DX: N90.4 Leukoplakia of vulva (principal)
CPT/HCPCS: 56605

== ENCOUNTER 2023-04-23 08:51 | Outpatient (REF) | payer MEDICARE, MEDICAID, SELFPAY ==
[2023-04-23 10:05] LABS: Cholesterol 123 mg/dL (<200); HDL Cholesterol 57 mg/dL (>40)
[2023-04-23 10:14] LABS: LDL Cholesterol Calculated 37 mg/dL (<100); Triglycerides 149 mg/dL (<150)
== END 2023-04-23 08:52 | disposition home or self-care (01) ==
LOC: HO.LAB 08:51
PROVIDERS: PCP Internal Medicine; Visit Provider Internal Medicine
DX: E11.9 Type 2 diabetes mellitus without complications (principal); Z79.4 Long term (current) use of insulin
CPT/HCPCS: 36415; 80061

== ENCOUNTER 2023-04-25 10:41 | Outpatient (AMB) | payer MEDICARE, MEDICAID, SELFPAY ==
[2023-04-25 10:45] VITALS: BP 124/72; BMI 24.5
--- NOTE | 2023-04-25 10:45 | A.OFFVIS_ITS ---
Intake Vital Signs 04/25/23 10:45 Height 5 ft 5 in Weight 147 lb BMI 24.5 BP 124/72 Intake Visit Reasons: emb follow up Creative Arts Therapist Required: Yes Creative Arts Therapist Language: Manager Strategic Sourcing Name: Carlie RAND Allergies lisinopril Allergy (Unknown, Verified 04/25/23 10:46) palpitations losartan Allergy (Unknown, Verified 04/25/23 10:46) palpitations canagliflozin [Invokana] Adverse Reaction (Unknown, Verified 04/25/23 10:46) palpitations Is last menstrual period known: No Post menopausal: Yes Patient : No HPI HPI Comments History of Present Illness Details Presenting for follow-up post vulvar biopsy, doing well with no complaints except for irritation in the perineal area not responding to [id number] 1% hydrocortisone. 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 [facility] Medical History CAD (coronary artery disease) Diabetes mellitus HTN (hypertension) Paroxysmal atrial tachycardia Surgical History History of bladder surgery Family History Father No problems noted. Mother No problems noted. Social History Patient Tobacco Use Status: Never used Tobacco Patient : No Female Reproductive History Menstrual control method: none Review of Systems Const All systems reviewed & are unremarkable except as noted in HPI and below Reports as per HPI and Reports no additional complaints GI Reports no additional complaints Reports no additional complaints Physical Exam Vital Signs: Last Vital Signs BP 124/72 04/25/23 10:45 BMI result Body Mass Index 24.5 Assessment & Plan Assessment & Plan (1) Vulvar leukoplakia: Comment: Possible vulvovaginitis Code(s): N90.4 - Leukoplakia of vulva Plan: Discussed with the patient the results the pathology. Will treat with Terazol 0.8% q.h.s. for 3 days with Clobetasol 0.05% to be applied at the affected area daily initial for 1-2 weeks then for maintenance 2-3 times a week as needed. Instructions given the patient to call in case of any of the following occur: Recurrence or persistence of her symptoms, Perineal hard areas or nonhealing ulcers. All questions answered, the patient verbalized understanding Medications: New clobetasol 0.05% Then maintenance therapy for 2-3 times per week 1 appl topical BID 2 weeks 45 grams 1RF terconazole 0.8% 1 appful vaginal BEDTIME 3 days 20 grams 0RF Coding Level of Care Code Est Pt Level 3 (51631) Diagnoses Vulvar leukoplakia N90.4
== END 2023-04-25 12:09 | disposition home or self-care (01) ==
LOC: HO.HWS 10:41
PROVIDERS: PCP Internal Medicine; Visit Provider Obstetrics & Gynecology
DX: N90.4 Leukoplakia of vulva (principal)
CPT/HCPCS: 99213

== ENCOUNTER → 2023-04-25 10:41 | Outpatient (BNVA) | payer MEDICARE, MEDICAID, SELFPAY | PROVIDERS: PCP Internal Medicine; Visit Provider Obstetrics & Gynecology | DX: N90.4 Leukoplakia of vulva (principal) | CPT/HCPCS: 99212 ==

== ENCOUNTER 2023-07-11 09:46 | Outpatient (AMB) | payer MEDICARE, MEDICAID, SELFPAY ==
--- NOTE | 2023-07-11 10:11 | MHC.OFFVIS ---
Intake Vital Signs 07/11/23 10:13 Height 5 ft 5 in Weight 142 lb BMI 23.6 BP 118/64 Intake Visit Reasons: annual Live In Companion Required: Yes Live In Companion Language: Syrian Information Interpreted: non-clinical & clinical Thermoforming Machine Operator: Thermoforming Machine Operator Present (Carlie RAND) Accompanied by: Self / Same As Patient Allergies lisinopril Allergy (Unknown, Verified 07/11/23 10:19) palpitations losartan Allergy (Unknown, Verified 07/11/23 10:19) palpitations canagliflozin [Invokana] Adverse Reaction (Unknown, Verified 07/11/23 10:19) palpitations Post menopausal: Yes HPI HPI Comments History of Present Illness Details Presenting for annual exam. No complaints. Last Pap/HPV was negative in 06/09, the patient is above the age of 65 with no history of abnormal Pap smear Last Mammogram was BI-RADS 2 in 01/14 No previous screening Colonoscopy Last DEXA scan was many years ago [facility] Medical History CAD (coronary artery disease) Diabetes mellitus HTN (hypertension) Paroxysmal atrial tachycardia Surgical History History of bladder surgery Family History Father No problems noted. Mother No problems noted. Social History Patient Tobacco Use Status: Never used Tobacco Female Reproductive History Menstrual Date of last pap smear: 06/17/17 Date of Mammogram: 12/24/22 Review of Systems Const All systems reviewed & are unremarkable except as noted in HPI and below Card Reports as per HPI Resp Reports as per HPI GI Reports as per HPI and Reports no additional complaints Reports as per HPI Physical Exam Vital Signs: Last Vital Signs BP 118/64 07/11/23 10:13 BMI result Body Mass Index 23.6 Const General: cooperative, healthy appearing and comfortable Chest Chest palpation & inspection: normal inspection of the chest and normal palpation of entire chest wall Breast/axilla inspection: normal inspection of the breasts and normal inspection of the axillae Breast/axilla palpation: normal palpation of the breasts, normal palpation of the axillae and no axillary lymphadenopathy Resp Effort & Inspection: normal respiratory effort Auscultation: clear to auscultation bilaterally Percussion: percussion normal Cardio Palpation: normal PMI Rate: regular rate Rhythm: regular rhythm Heart sounds: no murmurs and no rubs Peripheral pulses: Peripheral pulses 2+ throughout GI Inspection: Yes normal to inspection Palpation (GI): Soft to palpation, nontender, no guarding, not rigid and No hepatosplenomegaly present Percussion: Yes normal to percussion Auscultation: normal bowel sounds Rectal Exam - Female: deferred General: Yes bladder normal to palpation External Female Exam: No lesion Speculum Exam - Vagina: normal appearance of the vagina, normal palpation, normal vaginal discharge and not erythematous Speculum Exam - Cervix: normal appearance of the cervix and normal palpation Bimanual exam- vagina & uterus: normal bimanual exam, normal palpation, uterine size normal, bladder normal to palpation, consistency normal and normal palpation Bimanual Exam- Adnexa, other: normal adnexae, no masses and no tenderness Assessment & Plan Assessment & Plan (1) Well woman exam: Code(s): Z01.419 - Encounter for gynecological examination (general) (routine) without abnormal findings Plan: Co testing not indicated since the patient 's age is above 65 with no history of abnormal Pap smears last 25 years. Counseled the patient about the recommended dietary allowance of 1200 mg of Calcium & 800 IU of vitamin D. Instructions given the patient to schedule next screening Mammogram in 01/15. Offered the patient referral for screening colonoscopy , the patient would like to think about it and call back. Will order DEXA scan . The patient was instructed to perform monthly self-breast exams and to schedule a 2 week DEXA scan follow-up appointment and an annual exam in a year; All questions answered and the patient verbalized understanding. Orders: Orders XR DEXA axial skeleton Today Z78.0 - Asymptomatic menopausal state Coding Level of Care Code Est Pt Prev Care >65y(54670) Diagnoses Well woman exam Z01.419
[2023-07-11 10:13] VITALS: BP 118/64; BMI 23.6
== END 2023-07-11 10:41 | disposition home or self-care (01) ==
LOC: HO.HWS 09:46
PROVIDERS: PCP Internal Medicine; Visit Provider Obstetrics & Gynecology
DX: Z01.419 Encounter for gynecological examination (general) (routine) without abnormal findings (principal)
CPT/HCPCS: G0101

== ENCOUNTER 2023-07-11 09:46 | Outpatient (REF) | payer MEDICARE, MEDICAID, SELFPAY | END 2023-07-11 09:47 | disposition home or self-care (01) | LOC: HO.LAB 09:46 | PROVIDERS: Absent Provider Internal Medicine; PCP Internal Medicine; Visit Provider Obstetrics & Gynecology | DX: Z01.419 Encounter for gynecological examination (general) (routine) without abnormal findings (principal); L65.9 Nonscarring hair loss, unspecified | CPT/HCPCS: 36415; 84443; G0101 ==

== ENCOUNTER 2023-08-02 10:32 | Outpatient (REF) | payer MEDICARE, MEDICAID, SELFPAY ==
--- NOTE | ~2023-08-02 | MM_ITS ---
EXAMINATION: BONE DENSITOMETRY CLINICAL INDICATION: Asymptomatic menopausal state. COMPARISON: Previous BD dated 08/05/2018 and baseline BD dated 05/20/2014. TECHNIQUE: Using a Jigsaw DXA System (software version: 13.1) manufactured by [employer], dual-energy x-ray absorptiometry was performed of the lumbar spine and left hip. The images are of good technical quality. Summary results are attached. FINDINGS: LEFT FEMUR, NECK: Current: BMD 0.730 g/cm2, Z-score -0.4, T-score -2.2, osteopenia. Prior: BMD 0.757 g/cm2. Baseline: BMD 0.755 g/cm2. LEFT FEMUR, TOTAL: Current: BMD 0.754 g/cm2, Z-score -0.4, T-score -2.0, osteopenia, 2.8% decrease from previous, 1.2% decrease from baseline (<5% change is not significant). Prior: BMD 0.776 g/cm2. Baseline: BMD 0.763 g/cm2. AP SPINE L1-L4: Current: BMD 1.027 g/cm2, Z-score 0.5, T-score -1.3, osteopenia, 4.4% increase from previous, 3.4% increase from baseline (<5% change is not significant). Prior: BMD 0.984 g/cm2. Baseline: BMD 0.993 g/cm2. IDENTIFIED RISK FACTORS: Menopause, secondary osteoporosis (Type 1 diabetes), thiazide. HISTORY OF FRACTURE: None listed. MEDICATIONS: Vitamin D. MM/XR DEXA axial skeleton IMPRESSION: 1. DIAGNOSIS: Osteopenia based on the lowest T-score value of -2.2 in the femoral neck applying World Health Organization criteria. 2. 10-YEAR FRACTURE RISK PREDICTION, FRAX: Major osteoporotic fracture (clinical spine, forearm, hip or shoulder) 7.8%. Hip fracture 1.9%. 3. Treatment Recommendations: NOF guidelines recommend consideration for treatment in postmenopausal women and men age 50 and older presenting with the following: -A hip or vertebral (clinical or morphometric) fracture. -T-score less than or equal to -2.5 at the femoral neck or spine after appropriate evaluation to exclude secondary causes. -Low bone mass at the hip or spine and a 10-year fracture probability by FRAX of greater than or equal to 3% for hip fracture or greater than or equal to 20% for major osteoporotic fracture based on the [place] adapted WHO algorithm. 4. Other Recommendations: All treatment decisions require clinical judgment and consideration of individual patient factors, including patient preferences, comorbidities, previous drug use, risk factors not captured in the FRAX model (e.g. frailty, falls, vitamin D deficiency, increased bone turnover, interval significant decline in bone density) and possible under or overestimation of fracture risk by FRAX. Additional medical evaluation for secondary cause of low bone mineral density may be appropriate. FUTURE SCAN RECOMMENDATION: People with diagnosed cases of osteoporosis or at high risk for fracture should have regular bone mineral density tests. For patients eligible for Medicare, routine testing is allowed once every 2 years. The testing frequency can be increased to one year for patients who have rapidly progressing disease, those who are receiving or discontinuing medical therapy to restore bone mass, or have additional risk factors.
== END 2023-08-02 10:33 | disposition home or self-care (01) ==
LOC: HO.MAMMO 10:32
PROVIDERS: PCP Internal Medicine; Visit Provider Obstetrics & Gynecology
DX: Z13.820 Encounter for screening for osteoporosis (principal); Z78.0 Asymptomatic menopausal state
CPT/HCPCS: 77080

== ENCOUNTER 2023-09-04 11:10 | Outpatient (AMB) | payer MEDICARE, MEDICAID, SELFPAY ==
--- NOTE | 2023-09-04 11:27 | A.OFFVIS_ITS ---
Vital Signs 09/04/23 11:35 Height 5 ft 5 in Weight 141 lb 1.533 oz BMI 23.5 BP 118/70 Intake Visit Reasons: Dexa Results Visitor Services Associate Required: Yes Visitor Services Associate Language: Circulation Man Name: Carlie RAND Information Interpreted: non-clinical & clinical Accompanied by: Self / Same As Patient Allergies lisinopril Allergy (Unknown, Verified 07/11/23 10:19) palpitations losartan Allergy (Unknown, Verified 07/11/23 10:19) palpitations canagliflozin [Invokana] Adverse Reaction (Unknown, Verified 07/11/23 10:19) palpitations HPI Comments Details: The patient is presenting for follow up regarding DEXA scan results. T score @ spine and femoral Neck respectively were=-1.3 /-2.2 and 10 year FRAX risk = 7.8/1.9% for severe osteoporosis and fracture. [facility] Medical History CAD (coronary artery disease) Diabetes mellitus HTN (hypertension) Paroxysmal atrial tachycardia Surgical History History of bladder surgery Family History Father No problems noted. Mother No problems noted. Social History Patient Tobacco Use Status: Never used Tobacco Review of Systems Const All systems reviewed & are unremarkable except as noted in HPI and below Reports as per HPI and Reports no additional complaints GI Reports no additional complaints Reports no additional complaints Assessment & Plan Assessment & Plan (1) Osteopenia: Code(s): M85.80 - Other specified disorders of bone density and structure, unspecified site Category: Medical Plan: Discussed with the patient the DEXA results and FRAX risk. FRAX risk and T score showed no evidence of osteoporosis. Discussed with the patient all the options for osteoporosis prevention including lifestyle modifications including Ca+D supplements 1200 mg po qd/800 MIU, Weight bearing exercises and proteine supplements. The patient verbalized understanding and agreed plan will repeat DEXA in 2 years. Coding Level of Care Code Est Pt Level 3 (63081) Diagnoses Osteopenia M85.80
[2023-09-04 11:35] VITALS: BP 118/70; BMI 23.5
== END 2023-09-04 12:44 | disposition home or self-care (01) ==
LOC: HO.HWS 11:10
PROVIDERS: PCP Internal Medicine; Visit Provider Obstetrics & Gynecology
DX: M85.80 Other specified disorders of bone density and structure, unspecified site (principal)
CPT/HCPCS: 99213

== ENCOUNTER → 2023-09-04 11:10 | Outpatient (BNVA) | payer MEDICARE, MEDICAID, SELFPAY | PROVIDERS: PCP Internal Medicine; Visit Provider Obstetrics & Gynecology | DX: M85.80 Other specified disorders of bone density and structure, unspecified site (principal) | CPT/HCPCS: 99212 ==

== ENCOUNTER 2023-12-26 10:42 | Outpatient (AMB) | payer MEDICARE, MEDICAID, SELFPAY ==
[2023-12-26 11:01] VITALS: BP 124/80; PULSE 58; BMI 23.5
--- NOTE | 2023-12-26 11:01 | MHC.OFFVIS ---
Vital Signs 12/26/23 11:01 Height 5 ft 5 in Weight 141 lb 1.533 oz BMI 23.5 BP 124/80 Blood Pressure Location Lt brachial Position Sitting Pulse 58 Intake Visit Reasons: 1 yr f/up Intake Note: 1 year follow-up with ekg feeling good Shoe Trimmer Required: Yes Shoe Trimmer Services: Shoe Trimmer Present Shoe Trimmer Name: cyracom Allergies lisinopril Allergy (Unknown, Verified 07/11/23 10:19) palpitations losartan Allergy (Unknown, Verified 07/11/23 10:19) palpitations canagliflozin [Invokana] Adverse Reaction (Unknown, Verified 07/11/23 10:19) palpitations Medication List - Last Reconciled 12/26/23 by Michael Hazel MD aspirin (Ecotrin Low Strength) 81 mg PO DAILY bisoprolol fumarate 10 mg PO BID chlorthalidone 25 mg PO DAILY cholecalciferol (vitamin D3) 25 mcg PO DAILY clobetasol 0.05% 1 appl topical BID 2 weeks diltiazem HCl CD 120 mg PO DAILY insulin glargine U-300 conc 50 units subcut BEDTIME metformin 1,000 mg PO BID rosuvastatin 5 mg PO DAILY terconazole 0.8% 1 appful vaginal BEDTIME 3 days HPI Comments Details: Shahida comes for follow-up. History was obtained with help of armature winder helper repair over the telephone. Patient continues to have symptoms of palpitation that happens every other day lasting for few seconds with rapid heart rate. Symptoms are not persistent. No lightheadedness, syncope, shortness of breath associated with palpitations. She does not have any exertional shortness of breath or chest pain. Denies any heart failure symptoms. No lightheadedness, syncope. [facility] Medical History CAD (coronary artery disease) Diabetes mellitus HTN (hypertension) Paroxysmal atrial tachycardia Surgical History History of bladder surgery Family History Father No problems noted. Mother No problems noted. Social History Patient Tobacco Use Status: Never used Tobacco Review of Systems Const Denies chills, Denies fatigue, Denies fever(s), Denies frequent falls, Denies weakness, Denies weight gain and Denies weight loss ENT Denies dizziness Card Denies chest pain, Denies leg edema, Denies lightheadedness, Denies palpitations, Denies dyspnea, Denies dyspnea on exertion, Denies orthopnea and Denies other (loss of consciousness) Resp Denies cough, Denies dyspnea and Denies dyspnea on exertion GI Denies hematochezia and Denies change in stool character Musc Denies abnormal gait, Denies muscle weakness, Denies numbness, Denies radiating pain into limb and Denies tingling Neuro Denies abnormal gait, Denies dizziness, Denies frequent falls, Denies numbness, Denies tingling and Denies weakness Endo Denies fatigue and Denies palpitations Physical Exam Vital Signs: Last Vital Signs Pulse 58 12/26/23 11:01 BP 124/80 12/26/23 11:01 BMI result Body Mass Index 23.5 Const General: cooperative, comfortable, no acute distress, alert, awake and anxious Nutritional Appearance: thin Orientation/consciousness: patient oriented x3 Limitations: no limitations Neck Neck: Yes trachea midline, Yes supple and Yes no JVD Resp Effort & Inspection: normal respiratory effort Auscultation: clear to auscultation bilaterally Cardio Jugular venous distension: no JVD Palpation: normal PMI Rate: regular rate Rhythm: regular rhythm Heart sounds: S1 normal heart sound present and S2 normal heart sound present Neuro General: patient oriented x3 and no focal motor deficits Office Procedures EKG Details: EKG shows normal sinus rhythm with septal QS pattern otherwise with nonspecific ST T wave changes [id number], Complete Assessment & Plan Assessment & Plan (1) Paroxysmal atrial tachycardia: Code(s): I47.1 - Supraventricular tachycardia Category: Medical Plan: Paroxysmal atrial tachycardia with very minimal symptoms happening every other day with symptoms lasting few seconds. Would not change any therapy given her baseline slow heart rate. Continue avoid stimulants. Stress mitigation strategies were discussed. Continue current Cardizem and bisoprolol therapy. Management was discussed in details. (2) CAD (coronary artery disease): Comment: Nonobstructive 50% moderate stenosis in diagonal as well as RCA by coronary CTA Code(s): I25.10 - Atherosclerotic heart disease of [place] coronary artery without angina pectoris Category: Medical Plan: CAD nonobstructive without any current cardiac symptoms. Continue low-dose aspirin therapy life. Continue aggressive blood pressure control which is currently well optimized advised to monitor blood pressure at home maintain a log. Goal blood pressure less than 130/84. LDL is currently well optimized on current therapy. Importance of statin therapy was discussed. Continue diabetes management through office with goal hemoglobin A1c less than 7%. Will follow up in the clinic in 1 year's time, sooner p.r.n.. Thank you for allowing me to partake in her care Coding Level of Care Code Est Pt Level 4 (26233) Diagnoses Paroxysmal atrial tachycardia I47.1 CAD (coronary artery disease) I25.10 CPT Codes EKG - CPT: 49983-Egwjzjafplwjppmuz, Complete ([id number])
== END 2023-12-26 11:26 | disposition home or self-care (01) ==
PROVIDERS: PCP Internal Medicine; Visit Provider Internal Medicine Cardiovascular Disease
DX: I47.10 Supraventricular tachycardia, unspecified (principal); I25.10 Atherosclerotic heart disease of native coronary artery without angina pectoris
CPT/HCPCS: 93010; 99214

== ENCOUNTER → 2023-12-26 10:42 | Outpatient (BNVA) | payer MEDICARE, MEDICAID, SELFPAY | PROVIDERS: PCP Internal Medicine; Visit Provider Internal Medicine Cardiovascular Disease | DX: I47.10 Supraventricular tachycardia, unspecified (principal); I25.10 Atherosclerotic heart disease of native coronary artery without angina pectoris | CPT/HCPCS: 93005; 99212 ==

== ENCOUNTER 2023-12-27 08:45 | Outpatient (REF) | payer MEDICARE, MEDICAID, SELFPAY ==
--- NOTE | ~2023-12-27 | MM_ITS ---
EXAMINATION: MM SCREENING DIGITAL BREAST TOMOSYNTHESIS, BILATERAL CLINICAL INFORMATION: Screening. Asymptomatic. COMPARISON: Mammography: Comparison is made with available priors TECHNIQUE: Digital breast mammography with tomosynthesis is performed in both the craniocaudal and mediolateral oblique views along with computer-aided detection (CAD). FINDINGS: The breasts are heterogeneously dense, which may obscure small masses (ACR BI-RADS breast composition Category c). There are no significant masses, abnormal calcifications, or other abnormalities. MM/MM tomosynthesis screening BI IMPRESSION: No mammographic evidence of malignancy. ASSESSMENT: BI-RADS BI-RADS 1 - Negative RECOMMENDATION: Routine annual mammography screening. 1 year F/U This examination should not preclude the clinical evaluation of a suspicious palpable abnormality. This patient's information was entered into a reminder system with a target due date for their next mammogram. Electronically signed by: Sandra Luque DO 01/08/2024 12:51 PM EDT
[2023-12-27 09:32] LABS: Appearance Urine Clear; Color Urine Dark Yellow; Glucose Urine UA Negative (Negative); Leukocyte Esterase Urine Moderate (2+) (Negative); Nitrite Urine Negative (Negative); PH 6.5 (5.0-9.0); UMIC TRIGGER UACC YES; Urine Blood Negative (Negative); Urine Ketones Negative (Negative); Urine Protein Negative (Neg-Trace)
[2023-12-27 09:55] LABS: Bacteria Urine None Seen (None Seen); Hyaline Casts Urine 0-2 /LPF (0-2); RBC Urine 0-2 /HPF (0-2); Squamous Epithelial Cell Urine 0-2 /HPF (0-2); WBC Urine 0-5 /HPF (0-5)
[2023-12-27 10:48] LABS: Estimated Average Glucose 134 mg/dL; Hemoglobin A1C 146.6961 umol/L; Hemoglobin A1c % 6.3 % (<6.0); Total Hemoglobin (HGBA1C) 3273.1905 umol/L
[2023-12-27 11:25] LABS: Alanine Aminotransferase 18 U/L (0-31); Albumin Level 4.5 g/dL (3.5-5.0); Alkaline Phosphatase 47 U/L (39-117); Anion Gap 15 (12-20); Aspartate Amino Transferase 20 U/L (5-31); Bilirubin Total 0.9 mg/dL (0.0-1.0); Blood Urea Nitrogen 14 mg/dL (9-16); Calcium 9.8 mg/dL (8.4-10.2); Carbon Dioxide 26 mmol/L (22-29); Chloride 100 mmol/L (96-108); Estimated Glomerular Filt Rate > 60; Glucose Random 165 mg/dL (60-115); Potassium 3.9 mmol/L (3.3-5.1); Sodium 137 mmol/L (135-145); Total Protein 7.8 g/dL (6.5-8.0)
== END 2023-12-27 08:46 | disposition home or self-care (01) ==
LOC: HO.LAB 08:45
PROVIDERS: PCP Internal Medicine; Visit Provider Internal Medicine
DX: Z12.31 Encounter for screening mammogram for malignant neoplasm of breast (principal); R39.9 Unspecified symptoms and signs involving the genitourinary system; E11.65 Type 2 diabetes mellitus with hyperglycemia; Z79.4 Long term (current) use of insulin
CPT/HCPCS: 36415; 77063; 77067; 80053; 81001; 83036; 87086

== ENCOUNTER 2023-12-27 09:08 | Outpatient (REF) | payer MEDICARE, MEDICAID, SELFPAY | END 2023-12-27 09:09 | disposition home or self-care (01) | LOC: HO.MAMMO 09:08 | PROVIDERS: PCP Internal Medicine; Visit Provider Internal Medicine | DX: Z12.31 Encounter for screening mammogram for malignant neoplasm of breast (principal) ==

== ENCOUNTER → 2023-12-27 09:30 | Outpatient (BNV) | payer MEDICARE, MEDICAID, SELFPAY | PROVIDERS: PCP Internal Medicine; Visit Provider Internal Medicine | DX: Z12.31 Encounter for screening mammogram for malignant neoplasm of breast (principal) | CPT/HCPCS: 77063; 77067 ==